=== PATIENT | male | born 1955 | race Caucasian/White ===

== ENCOUNTER 2019-12-27 14:01 | Emergency (ER) | payer MEDICARE ==
[~2019-12-27] VITALS: Ht 185.4 cm; Wt 100.1 kg
[2019-12-27] MEDS ORDERED: SODIUM CHLORIDE 0.9% 1,000ML IVBOLUS ONE (14:30)
[2019-12-27] MEDS ORDERED: SODIUM CHLORIDE FLUSH 10ML SYR IVF ONE (14:30)
[2019-12-27] MEDS ORDERED: ONDANSETRON 2MG/ML, 2ML IVPush ONE (14:30)
[2019-12-27] MEDS ORDERED: METH10TA2 PO (14:48)
[2019-12-27] MEDS ORDERED: ALPR0.5T7 PO (14:48)
[2019-12-27] MEDS ORDERED: ONDANSETRON 2MG/ML, 2ML ONE (14:50)
--- NOTE | 2019-12-27 15:04 | NUR ---
ekg done by this tech
[2019-12-27 15:15] LABS: BASOPHILS # (AUTO) 0.05 x10^3/uL (0-0.1); BASOPHILS % (AUTO) 1 % (0-1); EOSINOPHILS # (AUTO) 0.01 x10^3/uL (0-0.4); EOSINOPHILS % (AUTO) 0 % (1-7); LYMPHOCYTES # (AUTO) 0.84 x10^3/uL (1-3.4); LYMPHOCYTES % (AUTO) 7 % (22-44); MD NO; MEAN CORPUSCULAR HEMOGLOBIN 34.4 pg (27.5-34.5); MEAN CORPUSCULAR HGB CONC 33.8 g/dL (33.2-36.2); MEAN CORPUSCULAR VOLUME 101.7 fL (81-97); MEAN PLATELET VOLUME 8.4 fL (7.4-10.4); MONOCYTES # (AUTO) 0.62 x10^3/uL (0.2-0.8); MONOCYTES % (AUTO) 5 % (2-9); NEUTROPHILS # (AUTO) 10.55 x10^3/uL (1.8-6.8); NEUTROPHILS % (AUTO) 87 % (42-75); PLATELET COUNT 185 x10^3/uL (130-400); RED CELL DISTRIBUTION WIDTH 14.3 % (9.4-14.8)
[2019-12-27 15:23] LABS: ALBUMIN 4.3 g/dL (3.4-5.0); ANION GAP 11 mmol/L (5-15); CALCIUM 10.2 mg/dL (8.5-10.1); CHLORIDE 103 mmol/L (98-107); CREATININE 1.27 mg/dL (0.7-1.3)
[2019-12-27] MEDS ORDERED: MORPHINE SULFATE 4 MG/ML, 1ML ONE (15:45)
--- NOTE | 2019-12-27 15:52 | NUR ---
SAEID NI AT BEDSIDE FOR RECHECK/EXPLANATION OF RESULTS. PT VERBALIZES UNDERSTANDING. PT MEDICATED ORDERED FOR CHRONIC PAIN. PT REPORTS DECREASE IN NAUSEA AFTER MEDICATION. HR DECREASED FROM IRREGULAR 130'S TO IRREGULAR 90'S-100'S. PT AO X 4. SKIN YAYA, WARM AND DRY. RESP EVEN AND UNLABORED. NO COUGHING, SOB OR CP NOTED. CALL LIGHT WITHIN REACH. WILL CONT TO MONITOR PT.
[2019-12-27 15:58] VITALS: BP 161/96
[2019-12-27] MEDS ORDERED: MORPHINE SULFATE 4 MG/ML, 1ML IVPush ONE (16:00)
== END 2019-12-27 16:59 | disposition home or self-care (01) ==
LOC: ED 14:26
DX: R11.2 Nausea with vomiting, unspecified (principal); I10 Essential (primary) hypertension; F11.23 Opioid dependence with withdrawal; R50.9 Fever, unspecified; I48.91 Unspecified atrial fibrillation
CPT/HCPCS: 36415; 71045; 80048; 82040; 83605; 85025; 93005; 96361; 96374; 96375; 99285; J2270; J2405; J7030

== ENCOUNTER → 2020-05-03 | Outpatient (CLI) | payer MEDICARE ==
[~2020-05-03] MED LIST: ALPR0.5T7 PO; METH10TA2 PO
== END | disposition home or self-care (01) ==
LOC: CVU 08:29
PROVIDERS: ATTEND Internal Medicine Cardiovascular Disease
DX: I08.3 Combined rheumatic disorders of mitral, aortic and tricuspid valves (principal); I10 Essential (primary) hypertension; I48.91 Unspecified atrial fibrillation
CPT/HCPCS: 93306

== ENCOUNTER 2020-05-30 10:44 | Day surgery (SDC) | payer MEDICARE ==
[~2020-05-30] VITALS: Ht 185.4 cm; Wt 94.5 kg
[2020-05-30 11:16] VITALS: BP 122/68
[2020-05-30] MEDS ORDERED: GABA300C PO (11:26)
[2020-05-30] MEDS ORDERED: METO25TA91 PO (11:26)
[2020-05-30] MEDS ORDERED: AMLO-150 PO (11:26)
[2020-05-30] MEDS ORDERED: ATOR10TA9 PO (11:26)
[2020-05-30] MEDS ORDERED: RIVA20TA PO (11:26)
[2020-05-30 11:51] LABS: ANION GAP 6 mmol/L (5-15); CALCIUM 9.4 mg/dL (8.5-10.1); CHLORIDE 110 mmol/L (98-107); CREATININE 0.98 mg/dL (0.7-1.3)
[2020-05-30] MEDS ORDERED: PROPOFOL 10 MG/ML, 20ML ONE (12:04)
== END 2020-05-30 15:00 | disposition home or self-care (01) ==
LOC: CACL 10:44
PROVIDERS: ATTEND Internal Medicine Cardiovascular Disease
DX: I48.91 Unspecified atrial fibrillation (principal); I48.92 Unspecified atrial flutter; I10 Essential (primary) hypertension; E78.5 Hyperlipidemia, unspecified; F12.10 Cannabis abuse, uncomplicated; F17.220 Nicotine dependence, chewing tobacco, uncomplicated; Z79.891 Long term (current) use of opiate analgesic; Z79.899 Other long term (current) drug therapy; Z98.890 Other specified postprocedural states; Z82.49 Family history of ischemic heart disease and other diseases of the circulatory system; Z80.8 Family history of malignant neoplasm of other organs or systems
CPT/HCPCS: 36415; 80048; 92960; J2704

== ENCOUNTER 2020-05-31 17:21 | Emergency (ER) | payer MEDICARE ==
[~2020-05-31] VITALS: Ht 185.4 cm; Wt 95.4 kg
[~2020-05-31 17:21] MED LIST changes: +AMLO-150 PO; +ATOR10TA9 PO; +GABA300C PO; +METO25TA91 PO; +RIVA20TA PO
[2020-05-31 18:48] LABS: ALBUMIN 3.8 g/dL (3.4-5.0); ANION GAP 8 mmol/L (5-15); CALCIUM 9.1 mg/dL (8.5-10.1); CHLORIDE 109 mmol/L (98-107); CREATININE 0.92 mg/dL (0.7-1.3)
--- NOTE | 2020-05-31 18:50 | NUR ---
REPORT FROM JULIEN ARREOLA
[2020-05-31 18:51] LABS: TROPONIN I < 0.015 ng/mL (0.000-0.045)
[2020-05-31 19:24] LABS: BASOPHILS # (AUTO) 0.14 x10^3/uL (0-0.1); BASOPHILS % (AUTO) 2 % (0-1); EOSINOPHILS # (AUTO) 0.26 x10^3/uL (0-0.4); EOSINOPHILS % (AUTO) 4 % (1-7); LYMPHOCYTES # (AUTO) 1.59 x10^3/uL (1-3.4); LYMPHOCYTES % (AUTO) 22 % (22-44); MD NO; MEAN CORPUSCULAR HEMOGLOBIN 32.9 pg (27.5-34.5); MEAN CORPUSCULAR HGB CONC 33.5 g/dL (33.2-36.2); MEAN CORPUSCULAR VOLUME 98.1 fL (81-97); MEAN PLATELET VOLUME 9.1 fL (7.4-10.4); MONOCYTES # (AUTO) 0.45 x10^3/uL (0.2-0.8); MONOCYTES % (AUTO) 6 % (2-9); NEUTROPHILS % (AUTO) 66 % (42-75); PLATELET COUNT 160 x10^3/uL (130-400); RED BLOOD COUNT 4.69 x10^6/uL (4.38-5.82)
[2020-05-31 20:32] VITALS: BP 147/86
== END 2020-05-31 20:45 | disposition home or self-care (01) ==
LOC: ED 20:41
DX: R06.00 Dyspnea, unspecified (principal); R06.02 Shortness of breath; R07.89 Other chest pain; I10 Essential (primary) hypertension
CPT/HCPCS: 36415; 71045; 80048; 82040; 83880; 84484; 85025; 93005; 99285

== ENCOUNTER → 2020-08-06 | Outpatient (CLI) | payer MEDICARE ==
[~2020-08-06] MED LIST changes: +REGADENOSON 0.4 MG/5 ML SYRINGE ONE
== END | disposition home or self-care (01) ==
LOC: CFH 08:04
PROVIDERS: ATTEND Internal Medicine Cardiovascular Disease
DX: I48.91 Unspecified atrial fibrillation (principal); I10 Essential (primary) hypertension
CPT/HCPCS: 78452; 93017; A9502; J2785

== ENCOUNTER 2020-10-22 06:32 | Day surgery (SDC) | payer MEDICARE ==
[~2020-10-22] VITALS: Ht 185.4 cm; Wt 91.4 kg
[~2020-10-22 06:32] MED LIST changes: -REGADENOSON 0.4 MG/5 ML SYRINGE ONE
[2020-10-22 06:59] VITALS: BP 132/91
[2020-10-22] MEDS ORDERED: METH5TAB2 PO (07:08)
[2020-10-22] MEDS ORDERED: FLEC50TA25 PO (07:08)
[2020-10-22] MEDS ORDERED: PREG25CA PO (07:08)
[2020-10-22] MEDS ORDERED: AMLO-150 PO (07:10)
[2020-10-22 07:44] LABS: ANION GAP 7 mmol/L (5-15); CALCIUM 9.2 mg/dL (8.5-10.1); CHLORIDE 110 mmol/L (98-107)
[2020-10-22 07:46] LABS: CREATININE 1.04 mg/dL (0.7-1.3)
[2020-10-22] MEDS ORDERED: PROPOFOL 10 MG/ML, 20ML ONE (08:13)
== END 2020-10-22 09:23 | disposition home or self-care (01) ==
LOC: CACL 06:32
PROVIDERS: ATTEND Internal Medicine Clinical Cardiac Electrophysiology
DX: I48.19 Other persistent atrial fibrillation (principal); I10 Essential (primary) hypertension; E78.5 Hyperlipidemia, unspecified; Z79.01 Long term (current) use of anticoagulants; Z79.899 Other long term (current) drug therapy
CPT/HCPCS: 36415; 80048; 92960; 93005; J2704

== ENCOUNTER → 2021-02-14 | Outpatient (CLI) | payer MEDICARE ==
[~2021-02-14] MED LIST changes: +FLEC50TA25 PO; +METH5TAB2 PO; +PREG25CA PO
== END | disposition home or self-care (01) ==
LOC: RAD 10:03
PROVIDERS: ATTEND Anesthesiology
DX: M50.30 Other cervical disc degeneration, unspecified cervical region (principal)
CPT/HCPCS: 72040

== ENCOUNTER → 2021-03-20 | Outpatient (CLI) | payer MEDICARE ==
[~2021-03-20] MED LIST changes: +OMNIPAQUE 350 MG/ML, 150 ML BOTTLE ONE
== END | disposition home or self-care (01) ==
LOC: CFH 09:52
PROVIDERS: ATTEND Internal Medicine Clinical Cardiac Electrophysiology
DX: I48.91 Unspecified atrial fibrillation (principal)
CPT/HCPCS: 71046; 75572; 82565; Q9967

== ENCOUNTER 2021-04-05 06:00 | Day surgery (SDC) | payer MEDICARE ==
[~2021-04-05] VITALS: Ht 185.4 cm; Wt 88.6 kg
[~2021-04-05 06:00] MED LIST changes: +COLC0.6C3 PO; -OMNIPAQUE 350 MG/ML, 150 ML BOTTLE ONE; +PANT20TA2 PO
[2021-04-05] MEDS ORDERED: [UNRECOGNIZED DRUG - REMARK] (06:34)
[2021-04-05] MEDS ORDERED: POTA20TA6 PO (06:34)
[2021-04-05 06:36] VITALS: BP 112/79
[2021-04-05] MEDS ORDERED: FURO-93 PO (06:52)
[2021-04-05 06:56] LABS: ANION GAP 5 mmol/L (5-15); CALCIUM 8.8 mg/dL (8.5-10.1); CHLORIDE 107 mmol/L (98-107); CREATININE 1.23 mg/dL (0.7-1.3)
[2021-04-05 07:00] LABS: BASOPHILS % (AUTO) 1 % (0-1); EOSINOPHILS % (AUTO) 3 % (1-7); LYMPHOCYTES % (AUTO) 41 % (22-44); MEAN CORPUSCULAR HEMOGLOBIN 32.2 pg (27.5-34.5); MEAN CORPUSCULAR HGB CONC 34.9 g/dL (33.2-36.2); MEAN PLATELET VOLUME 8.8 fL (7.4-10.4); MONOCYTES % (AUTO) 6 % (2-9); NEUTROPHILS % (AUTO) 49 % (42-75); PLATELET COUNT 194 x10^3/uL (130-400); RED BLOOD COUNT 4.67 x10^6/uL (4.38-5.82); RED CELL DISTRIBUTION WIDTH 13.2 % (9.4-14.8)
[2021-04-05] MEDS ORDERED: OXYcodone/APAP 5/325MG TABLET PO ONE (10:00)
== END 2021-04-05 10:25 | disposition home or self-care (01) ==
LOC: CACL 06:00
PROVIDERS: ATTEND Internal Medicine Clinical Cardiac Electrophysiology
DX: I48.92 Unspecified atrial flutter (principal); I48.19 Other persistent atrial fibrillation; I11.0 Hypertensive heart disease with heart failure; I50.31 Acute diastolic (congestive) heart failure; E78.5 Hyperlipidemia, unspecified; Z79.01 Long term (current) use of anticoagulants; Z79.899 Other long term (current) drug therapy; Z85.038 Personal history of other malignant neoplasm of large intestine
CPT/HCPCS: 36415; 80048; 85025; 92960; 93005